=== PATIENT | female | born 1985 | race African-American/Black ===

== ENCOUNTER 2018-01-13 18:37 | Emergency (ER) | payer SELFPAY ==
[~2018-01-13] VITALS: Ht 172.7 cm; Wt 141.5 kg
[~2018-01-13 18:37] MED LIST: ALBUTEROL SULF8.5 GM; PROMETHAZINE HC25 M1 PO; TYLENOL WITH C1 EACH PO
[2018-01-13] MEDS ORDERED: MORPHINE SULFATE 4 MG/ML SYR IV STA (19:24)
[2018-01-13] MEDS ORDERED: ONDANSETRON HCL INJ 2 MG/ML VIAL IV STA (19:24)
[2018-01-13] MEDS ORDERED: SODIUM CHLORIDE 0.9% 1000ML 1,000 ML IV STA (19:24)
[2018-01-13 19:29] LABS: BASOPHILS % 0.1 % (0.0-1.0); EOSINOPHILS # (AUTO) 0.1 (0.0-0.4); EOSINOPHILS % 0.8 % (0.0-6.0); HEMATOCRIT 37.6 % (34.2-44.1); HEMOGLOBIN 12.5 g/dL (12.0-16.0); LYMPHOCYTES # (AUTO) 1.7 (1.0-3.2); LYMPHOCYTES % 14.1 % (18.0-39.1); MEAN CORPUSCULAR HEMOGLOBIN 31.8 pg (28-32); MEAN CORPUSCULAR HGB CONC 33.2 g/dL (31-35); MEAN CORPUSCULAR VOLUME 95.7 fL (81-99); MONOCYTES # (AUTO) 0.3 (0.2-0.8); MONOCYTES % 2.2 % (4.4-11.3); NEUTROPHILS # (AUTO) 9.9 (2.1-6.9); NEUTROPHILS % 82.5 % (38.7-80.0); PLATELET COUNT 219 x10e3/uL (140-360); RED BLOOD COUNT 3.93 x10e6/uL (3.6-5.1); RED CELL DISTRIBUTION WIDTH 12.2 % (11.7-14.4)
[2018-01-13 19:49] LABS: ALANINE AMINOTRANSFERASE 16 IU/L (0-55); ALBUMIN 3.2 g/dL (3.5-5.0); ALBUMIN/GLOBULIN RATIO 1.1 (0.8-2.0); ALKALINE PHOSPHATASE 42 IU/L (40-150); AMYLASE 40 U/L (25-125); ANION GAP 9.8 mmol/L (8-16); BLOOD UREA NITROGEN 11 mg/dL (7-26); BUN/CREATININE RATIO 14 (6-25); CALCIUM 8.4 mg/dL (8.4-10.2); CARBON DIOXIDE 25 mmol/L (22-29); CHLORIDE 104 mmol/L (98-107); CREATININE, SERUM 0.78 mg/dL (0.57-1.11); EST GLOMERULAR FILTRATION RATE > 60 ML/MIN (60-); GLUCOSE 98 mg/dL (74-118); LIPASE 28 U/L (8-78); POTASSIUM 3.8 mmol/L (3.5-5.1); SODIUM 135 mmol/L (136-145)
[2018-01-13] MEDS ORDERED: MORPHINE SULFATE 2 MG/ML SYR ONE (21:27)
--- NOTE | 2018-01-13 22:21 | Diagnostic Imaging Report ---
EXAM: CT ABDOMEN AND PELVIS with IV CONTRAST DATE: 01/13/2018 9:09 PM Time stamp on Exam: 2145 hours INDICATION: Abdomen and flank pain, left COMPARISON: None TECHNIQUE: The abdomen and pelvis were scanned using a multidetector helical scanner. Coronal and sagittal reformations were obtained. Routine protocol performed. IV Contrast: 100 cc Isovue-370 Oral Contrast: None CTDIvol has been reviewed. It is below the limits set by the Radiation Protocol Committee (RPC). FINDINGS: LOWER THORAX: No consolidations LIVER: No masses BILIARY: Cholecystectomy. No ductal dilation. SPLEEN: No masses PANCREAS: No masses ADRENALS: No nodules KIDNEYS: Symmetric perfusion. No enhancing masses. No hydronephrosis. GI TRACT: No distention, wall thickening or evidence of obstruction. Normal appendix. VESSELS: Unremarkable PERITONEUM/RETROPERITONEUM: No free air or fluid LYMPH NODES: No lymphadenopathy REPRODUCTIVE ORGANS: Unremarkable BLADDER: Unremarkable SOFT TISSUES: Unremarkable BONES: No suspicious bone lesions. IMPRESSION: No CT findings to explain patient's pain. Signed by: Dr. Ana Chow M.D. on 01/13/2018 10:18 PM
[2018-01-13 22:57] LABS: BILIRUBIN,URINE NEGATIVE (NEGATIVE); CLARITY,URINE CLEAR (CLEAR); COLOR,URINE YELLOW (YELLOW); KETONES,URINE NEGATIVE (NEGATIVE); LEUKOCYTE ESTERASE ,URINE NEGATIVE (NEGATIVE); NITRITE,URINE NEGATIVE (NEGATIVE); PROTEIN,URINE DIPSTICK NEGATIVE (NEGATIVE); URINE UROBILINOGEN 0.2 mg/dL (0.2 - 1)
[2018-01-13] MEDS ORDERED: SODIUM CHLORIDE 0.9% 50ML 50 ML ONE (23:02)
[2018-01-13] MEDS ORDERED: IOPAMIDOL 370 MG/ML 200 ML INFUS..BTL INJ ONE (23:02)
[2018-01-13 23:03] LABS: BACTERIA,URINE FEW /HPF; EPITHELIAL CELLS,URINE RARE /LPF; RBC,URINE 0-5 /HPF (0-5); WBC,URINE (MAN) 0-5 /HPF (0-5)
[2018-01-13 23:15] VITALS: BP 125/78
== END 2018-01-13 23:20 | disposition home or self-care (01) ==
LOC: ER 18:37
DX: R10.31 Right lower quadrant pain (principal); R11.2 Nausea with vomiting, unspecified; E66.9 Obesity, unspecified
CPT/HCPCS: 36415; 74177; 80053; 81001; 82150; 83690; 84702; 85025; 99284; J2270; J2405; J7030; Q9967

== ENCOUNTER 2021-12-18 19:42 | Emergency (ER) | payer OTHER ==
[~2021-12-18] VITALS: Ht 172.7 cm; Wt 141.5 kg
[2021-12-18] MEDS ORDERED: ACETAMINOPHEN 325 MG TAB PO ONE (20:15)
[2021-12-18 22:01] VITALS: BP 109/68
== END 2021-12-18 22:06 | disposition home or self-care (01) ==
LOC: ER 20:16
DX: M79.672 Pain in left foot (principal); X50.1XXA Overexertion from prolonged static or awkward postures, initial encounter; Y92.89 Other specified places as the place of occurrence of the external cause; F17.210 Nicotine dependence, cigarettes, uncomplicated
CPT/HCPCS: 99283

== ENCOUNTER 2024-09-08 18:58 | Emergency (ER) | payer OTHER ==
[~2024-09-08] VITALS: Ht 172.7 cm; Wt 141.5 kg
[2024-09-08 20:28] VITALS: TEMP 97.6
[2024-09-08] MEDS: TRAMADOL HCL 50 MG TAB PO STA (20:36)
[2024-09-08 21:21] VITALS: PULSE 89; RESP 18
[2024-09-08] MEDS ORDERED: ULTRAM 50MG50 MG PO (21:26)
[2024-09-08 21:35] VITALS: BP 129/74; PULSE 89; RESP 18; TEMP 98.1; O2SAT 98
== END 2024-09-08 21:25 | disposition home or self-care (01) ==
LOC: ER 19:40
DX: S93.492A Sprain of other ligament of left ankle, initial encounter (principal); X50.1XXA Overexertion from prolonged static or awkward postures, initial encounter; Y92.89 Other specified places as the place of occurrence of the external cause
CPT/HCPCS: 99283

== ENCOUNTER 2024-12-28 20:02 | Emergency (ER) | payer OTHER ==
[~2024-12-28] VITALS: Ht 172.7 cm; Wt 141.5 kg
[~2024-12-28 20:02] MED LIST changes: +ULTRAM 50MG50 MG PO
[2024-12-28] MEDS ORDERED: ONDANSETRON HCL INJ 2MG/ML 2ML 2 MG/ML VIAL ONE (20:06)
[2024-12-28] MEDS ORDERED: SODIUM CHLORIDE 0.9% 1000ML 1,000 ML ONE (20:06)
[2024-12-28 21:09] LABS: BASOPHILS % 0.2 % (0.0-1.0); EOSINOPHILS # (AUTO) 0.2 (0.0-0.4); EOSINOPHILS % 1.4 % (0.0-6.0); HEMATOCRIT 37.2 % (34.2-44.1); HEMOGLOBIN 12.2 g/dL (12.0-16.0); LYMPHOCYTES # (AUTO) 3.7 (1.0-3.2); MEAN CORPUSCULAR HEMOGLOBIN 31.5 pg (28-32); MEAN CORPUSCULAR HGB CONC 32.8 g/dL (31-35); MEAN CORPUSCULAR VOLUME 96.1 fL (81-99); MONOCYTES # (AUTO) 0.7 (0.2-0.8); MONOCYTES % 5.6 % (4.4-11.3); NEUTROPHILS # (AUTO) 7.4 (2.1-6.9); NEUTROPHILS % 61.5 % (38.7-80.0); PLATELET COUNT 282 x10e3/uL (140-360); RED BLOOD COUNT 3.87 x10e6/uL (3.6-5.1); RED CELL DISTRIBUTION WIDTH 13.4 % (11.7-14.4); WHITE BLOOD COUNT 12.06 x10e3/uL (4.8-10.8)
[2024-12-28 21:20] LABS: ALBUMIN 3.8 g/dL (3.5-5.0); ALBUMIN/GLOBULIN RATIO 1.2 (0.8-2.0); BILIRUBIN,TOTAL 0.4 mg/dL (0.2-1.2); CALCIUM 8.8 mg/dL (8.4-10.2); CREATININE, SERUM 0.79 mg/dL (0.57-1.11); TOTAL PROTEIN 6.9 g/dL (6.5-8.1)
[2024-12-28 21:25] LABS: INFLUENZA A AG NEGATIVE (NEGATIVE); INFLUENZA B AG NEGATIVE (NEGATIVE)
[2024-12-28 21:26] LABS: CORONAVIRUS COVID-19 AG NEGATIVE (NEGATIVE)
[2024-12-28] MEDS: ONDANSETRON HCL INJ 2MG/ML 2ML 2 MG/ML VIAL IV STA ×2 (21:33→23:49)
[2024-12-28] MEDS: SODIUM CHLORIDE 0.9% 1000ML 1,000 ML IV ONE (21:33)
[2024-12-28 22:24] LABS: CLARITY,URINE CLEAR (CLEAR); COLOR,URINE YELLOW (YELLOW)
[2024-12-28 22:25] LABS: BILIRUBIN,URINE NEGATIVE (NEGATIVE); GLUCOSE, URINE NEGATIVE (NEGATIVE); KETONES,URINE NEGATIVE (NEGATIVE); LEUKOCYTE ESTERASE ,URINE NEGATIVE (NEGATIVE); NITRITE,URINE NEGATIVE (NEGATIVE); PH,URINE 5.5 (5 - 7); PROTEIN,URINE DIPSTICK NEGATIVE (NEGATIVE); URINE UROBILINOGEN 0.2 mg/dL (0.2 - 1)
[2024-12-28 22:29] LABS: BACTERIA,URINE MANY /HPF; EPITHELIAL CELLS,URINE MANY /LPF; RBC,URINE 0-5 /HPF (0-5)
[2024-12-28 23:35] VITALS: PULSE 92; RESP 20; O2SAT 94
[2024-12-28] MEDS: IPRATROPIUM BROMIDE 0.02% 2.5 ML NEB NEB ONE (23:35)
[2024-12-28] MEDS: ALBUTEROL SULF 0.083% NEB SOLN 3 ML NEB NEB STA (23:35)
[2024-12-28] MEDS: METHYLPREDNISOLONE SOD SUCC 125 MG/2ML VIAL IV ONE (23:50)
[2024-12-29 00:20] VITALS: PULSE 84; RESP 20
[2024-12-29] MEDS ORDERED: ONDANSETRON ODT4 MG SL (00:50)
[2024-12-29] MEDS ORDERED: MEDROL4 M2 PO (00:50)
[2024-12-29 00:55] VITALS: PULSE 85; RESP 16; TEMP 98.6; O2SAT 95
== END 2024-12-29 01:05 | disposition home or self-care (01) ==
LOC: ER 23:26
DX: R07.89 Other chest pain (principal); R10.11 Right upper quadrant pain; J45.909 Unspecified asthma, uncomplicated; Z11.52 Encounter for screening for COVID-19; F17.210 Nicotine dependence, cigarettes, uncomplicated
CPT/HCPCS: 36415; 71045; 80053; 81001; 85025; 87428; 94640; 94799; 99284; J2405; J2919; J7030

== ENCOUNTER 2025-04-10 17:50 | Inpatient (IN) | payer OTHER ==
[~2025-04-10] VITALS: Ht 172.7 cm; Wt 141.5 kg
[2025-04-10 17:50] VITALS: TEMP 98.4
[~2025-04-10 17:50] MED LIST changes: +MEDROL4 M2 PO; +ONDANSETRON ODT4 MG SL
[2025-04-10 18:12] LABS: BASOPHILS % 0.4 % (0.0-1.0); EOSINOPHILS # (AUTO) 0.9 (0.0-0.4); EOSINOPHILS % 8.2 % (0.0-6.0); HEMATOCRIT 37.2 % (34.2-44.1); HEMOGLOBIN 12.2 g/dL (12.0-16.0); LYMPHOCYTES # (AUTO) 3.1 (1.0-3.2); LYMPHOCYTES % 28.9 % (18.0-39.1); MEAN CORPUSCULAR HEMOGLOBIN 31.9 pg (28-32); MEAN CORPUSCULAR HGB CONC 32.8 g/dL (31-35); MEAN CORPUSCULAR VOLUME 97.4 fL (81-99); MONOCYTES # (AUTO) 0.8 (0.2-0.8); MONOCYTES % 6.9 % (4.4-11.3); NEUTROPHILS % 55.3 % (38.7-80.0); PLATELET COUNT 268 x10e3/uL (140-360); RED BLOOD COUNT 3.82 x10e6/uL (3.6-5.1); RED CELL DISTRIBUTION WIDTH 13.8 % (11.7-14.4); WHITE BLOOD COUNT 10.84 x10e3/uL (4.8-10.8)
[2025-04-10] MEDS: ALBUTEROL SULF 0.083% NEB SOLN 3 ML NEB NEB STA ×2 (18:14→19:53)
[2025-04-10 18:15] VITALS: PULSE 100; RESP 25; O2SAT 96
[2025-04-10] MEDS: IPRATROPIUM BROMIDE 0.02% 2.5 ML NEB NEB ONE (18:15)
[2025-04-10 18:23] LABS: ANION GAP 14.6 mmol/L (8-16); CALCIUM 9.1 mg/dL (8.4-10.2); CREATININE, SERUM 0.86 mg/dL (0.57-1.11); POTASSIUM 3.6 mmol/L (3.5-5.1)
[2025-04-10] MEDS: METHYLPREDNISOLONE SOD SUCC 125 MG/2ML VIAL IV ONE (18:34)
[2025-04-10 18:51] LABS: CORONAVIRUS COVID-19 AG NEGATIVE (NEGATIVE); INFLUENZA A AG NEGATIVE (NEGATIVE); INFLUENZA B AG NEGATIVE (NEGATIVE)
[2025-04-10 19:53] VITALS: PULSE 101; RESP 18; O2SAT 94
[2025-04-10] MEDS ORDERED: SODIUM CHLORIDE FLUSH 10 ML SYR INJ PRN (20:30)
[2025-04-10 20:43] VITALS: PULSE 102; RESP 20
[2025-04-10 21:40] VITALS: BP 133/89; PULSE 114; RESP 20; TEMP 98.7; O2SAT 96
[2025-04-10] MEDS: METHYLPREDNISOLONE SOD SUCC 40 MG/ML VIAL 1ML IV SCH (23:03)
[2025-04-10] MEDS: ACETAMINOPHEN 325 MG TAB PO PRN (23:03)
[2025-04-11] VITALS (16 sets, daily range): BP systolic 132–147; BP diastolic 61–89; PULSE 77–105; RESP 18–23; TEMP 97.5–98.7; O2SAT 95–100
[2025-04-11] MEDS: ALBUTEROL/IPRATROPIUM 3 ML NEB NEB SCH (00:08)
[2025-04-11] MEDS ORDERED: POLYETHYLENE GLYCOL 3350 17 GM PACK PO PRN (00:30)
[2025-04-11] MEDS ORDERED: LABETALOL HCL 5 MG/ML 20ML VIAL IV PRN (00:30)
[2025-04-11 04:44] LABS: BASOPHILS % 0.1 % (0.0-1.0); HEMATOCRIT 37.9 % (34.2-44.1); HEMOGLOBIN 12.4 g/dL (12.0-16.0); LYMPHOCYTES # (AUTO) 0.7 (1.0-3.2); LYMPHOCYTES % 7.7 % (18.0-39.1); MEAN CORPUSCULAR HGB CONC 32.7 g/dL (31-35); MEAN CORPUSCULAR VOLUME 97.7 fL (81-99); MONOCYTES # (AUTO) 0.1 (0.2-0.8); MONOCYTES % 0.5 % (4.4-11.3); NEUTROPHILS # (AUTO) 8.6 (2.1-6.9); NEUTROPHILS % 91.4 % (38.7-80.0); PLATELET COUNT 273 x10e3/uL (140-360); RED BLOOD COUNT 3.88 x10e6/uL (3.6-5.1); RED CELL DISTRIBUTION WIDTH 13.8 % (11.7-14.4); WHITE BLOOD COUNT 9.41 x10e3/uL (4.8-10.8)
[2025-04-11 05:17] LABS: ANION GAP 14.2 mmol/L (8-16); CREATININE, SERUM 0.96 mg/dL (0.57-1.11); POTASSIUM 4.2 mmol/L (3.5-5.1)
[2025-04-11 05:51] LABS: CHOLESTEROL 176 MD/DL (0-199); HDL CHOLESTEROL 58 MG/DL (40-60); LDL CHOLESTEROL 104 MG/DL (60-130); MAGNESIUM 1.8 MG/DL (1.3-2.1); PHOSPHORUS 2.1 MG/DL (2.3-4.7); TRIGLYCERIDES 71 MG/DL (0-149)
[2025-04-11 06:13] LABS: FREE T4 (FREE THYROXINE) 0.92 ng/dL (0.8-1.8); HCG,QUANTITATIVE < 1.20 mIU/mL (0-10); THYROID STIMULATING HORMONE 0.384 uIU/mL (0.350-4.940)
[2025-04-11] MEDS: FAMOTIDINE 20 MG TAB PO SCH (08:36)
[2025-04-11] MEDS: DOCUSATE SODIUM 100 MG CAP PO SCH (08:36)
[2025-04-11] MEDS: SODIUM PHOSPHATE 15 MMOL in SODIUM CHLORIDE 0.9% 250ML 250 ML IV ONE (08:37)
[2025-04-11] MEDS: GUAIFENESIN/CODEINE 5 ML LIQD PO PRN (09:29)
[2025-04-11] MEDS: METHYLPREDNISOLONE SOD SUCC 40 MG/ML VIAL 1ML IV SCH (09:29)
[2025-04-11] MEDS: ONDANSETRON HCL INJ 2MG/ML 2ML 2 MG/ML VIAL IV PRN (12:19)
[2025-04-11] MEDS ORDERED: BUDESONIDE/FORMOTEROL 160/4.5MCG INHALER INH SCH (19:00)
[2025-04-11] MEDS: BUDESONIDE/FORMOTEROL 160/4.5MCG INHALER INH SCH (19:08)
[2025-04-11] MEDS: ZOLPIDEM TARTRATE 5 MG TAB PO PRN (21:43)
[2025-04-12] VITALS (10 sets, daily range): BP systolic 117–157; BP diastolic 60–86; PULSE 77–107; RESP 18–22; TEMP 97.5–98; O2SAT 98–100
[2025-04-12 05:18] LABS: BASOPHILS % 0.1 % (0.0-1.0); HEMATOCRIT 36.7 % (34.2-44.1); HEMOGLOBIN 11.8 g/dL (12.0-16.0); LYMPHOCYTES # (AUTO) 1.2 (1.0-3.2); LYMPHOCYTES % 7.7 % (18.0-39.1); MEAN CORPUSCULAR HEMOGLOBIN 31.5 pg (28-32); MEAN CORPUSCULAR HGB CONC 32.2 g/dL (31-35); MEAN CORPUSCULAR VOLUME 97.9 fL (81-99); MONOCYTES # (AUTO) 0.5 (0.2-0.8); MONOCYTES % 3.5 % (4.4-11.3); NEUTROPHILS # (AUTO) 13.7 (2.1-6.9); NEUTROPHILS % 88.4 % (38.7-80.0); PLATELET COUNT 274 x10e3/uL (140-360); RED BLOOD COUNT 3.75 x10e6/uL (3.6-5.1); WHITE BLOOD COUNT 15.49 x10e3/uL (4.8-10.8)
[2025-04-12 06:00] LABS: ANION GAP 12.6 mmol/L (8-16); CALCIUM 8.6 mg/dL (8.4-10.2); CREATININE, SERUM 0.73 mg/dL (0.57-1.11); POTASSIUM 4.6 mmol/L (3.5-5.1)
[2025-04-12] MEDS: BENZONATATE 100 MG CAP PO PRN (08:19)
[2025-04-12] MEDS: METHYLPREDNISOLONE SOD SUCC 125 MG/2ML VIAL IV SCH (22:03)
[2025-04-13] VITALS (11 sets, daily range): BP systolic 126–153; BP diastolic 64–100; PULSE 79–105; RESP 18–22; TEMP 97.7–98.6; O2SAT 95–100
[2025-04-13] MEDS: ACETAMIN/BUTALBITAL/CAFFEINE TAB PO PRN (12:04)
[2025-04-13] MEDS ORDERED: GUAIFENESIN/CODEINE 5 ML LIQD PO PRN (18:45)
[2025-04-14] VITALS (7 sets, daily range): BP systolic 106–137; BP diastolic 70–96; PULSE 82–100; RESP 19–23; TEMP 98.4–98.7; O2SAT 96–100
[2025-04-14] MEDS ORDERED: ZITHROMAX500 MG PO (13:27)
[2025-04-14] MEDS ORDERED: SYMBICORT 16010.2 GM INH (13:27)
[2025-04-14] MEDS ORDERED: PREDNISONE20 MG PO (13:27)
[2025-04-14] MEDS ORDERED: CEFUROXIME250 MG PO (13:27)
[2025-04-14] MEDS ORDERED: MUCINEX DM ER1 EACH PO (13:27)
== END 2025-04-14 17:00 | disposition home or self-care (01) | DRG 202 ==
LOC: ER 18:04 → ERHOLD 20:22 → MED/SURG 21:08 → OBSVTOIN 04-11 16:52 → MED/SURG 04-14 11:24
PROVIDERS: ADMIT Internal Medicine; ATTEND Internal Medicine
DX: J45.901 Unspecified asthma with (acute) exacerbation (principal); Z68.42 Body mass index [BMI] 45.0-49.9, adult; G47.33 Obstructive sleep apnea (adult) (pediatric); R06.03 Acute respiratory distress; D64.9 Anemia, unspecified; E66.01 Morbid (severe) obesity due to excess calories; R73.9 Hyperglycemia, unspecified; T38.0X5A Adverse effect of glucocorticoids and synthetic analogues, initial encounter; Y92.239 Unspecified place in hospital as the place of occurrence of the external cause; Z90.49 Acquired absence of other specified parts of digestive tract; Z11.52 Encounter for screening for COVID-19; Z72.0 Tobacco use
CPT/HCPCS: 36415; 71045; 80048; 80061; 83036; 83735; 83880; 84100; 84439; 84443; 84702; 85025; 94640; 94664; 94799; 99252; 99284; G0378; J0696; J2405; J2919; J7050

== ENCOUNTER 2025-06-08 16:18 | Emergency (ER) | payer OTHER ==
[~2025-06-08] VITALS: Ht 172.7 cm; Wt 141.5 kg
[~2025-06-08 16:18] MED LIST changes: +CEFUROXIME250 MG PO; +MUCINEX DM ER1 EACH PO; +PREDNISONE20 MG PO; +SYMBICORT 16010.2 GM INH; +ZITHROMAX500 MG PO
[2025-06-08] MEDS: TRAMADOL HCL 50 MG TAB PO ONE (17:08)
[2025-06-08 18:41] VITALS: PULSE 94; RESP 16; TEMP 98.6; O2SAT 100
== END 2025-06-08 18:39 | disposition home or self-care (01) ==
LOC: ER 16:26
DX: S93.492A Sprain of other ligament of left ankle, initial encounter (principal); X50.1XXA Overexertion from prolonged static or awkward postures, initial encounter; Y92.89 Other specified places as the place of occurrence of the external cause; J45.909 Unspecified asthma, uncomplicated
CPT/HCPCS: 99283